=== PATIENT | female | born 1930 | race Caucasian/White ===

== ENCOUNTER 2016-08-16 03:27 | Inpatient (IN) ==
[2016-08-16] MEDS ORDERED: ONDANSETRON 4 MG/2 ML VIAL ONE ×2 (03:53→04:48)
[2016-08-16] MEDS ORDERED: MORPHINE 2 MG/1 ML SYRINGE IV STA (04:07)
[2016-08-16] MEDS ORDERED: SODIUM CHLORIDE 0.9% 1,000 ML IV STA (04:07)
[2016-08-16] MEDS ORDERED: ENOXAPARIN 100 MG/ML SYRINGE SUBCUT STA (04:07)
[2016-08-16] MEDS ORDERED: NITROGLYCERIN 2% OINT 1 INCH/GM PACK TOP STA (04:07)
[2016-08-16] MEDS ORDERED: ONDANSETRON 4 MG/2 ML VIAL IV STA ×2 (04:07→04:48)
[2016-08-16] MEDS ORDERED: ASPIRIN 325 MG TABLET PO STA (04:07)
[2016-08-16 04:19] LABS: Basophils % 0.3 % (0.0-0.8); Hematocrit 46.6 VOL% (35.7-47.0); Hemoglobin 14.8 GM/DL (12.0-16.0); Immature Granulocytes % 0.4 %; Immature Granulocytes Absolute 0.03 #; Lymphocytes # 0.7 10*3/uL (1.4-4.0); Lymphocytes % 9.2 % (21.3-54.2); Mean Corpuscular HGB Conc 31.8 GM/DL (32-36); Mean Corpuscular Hemoglobin 29 PG (27-34); Mean Platelet Volume 10.8 FL (9.6-12.0); Monocytes # 0.2 10*3/uL (0.11-0.8); Monocytes % 3.1 % (1.7-12.7); Neutrophils # 6.4 10*3/uL (1.4-7.4); Platelet Count 181 T/CUMM (130-400); Red Blood Count 5.18 MC/CUMM (3.8-5.5); White Blood Count 7.4 T/CUMM (4-12)
--- NOTE | 2016-08-16 04:21 | Emergency Department Note ---
Bharath Ott Mantricia, am scribing for, and in the presence of, Reginald Bernal MD 04:17. Gabe Ott Robert M, MD, personally performed the services described in this documentation, ascribed by Thor Sinha in my presence, and it is both accurate and complete 421 . Arrival - Arrival ED Nursing Triage Note: pt states chest pain started last night and has gotten worse and now feels sob and has had n/v/d. Mode of Arrival: Ambulatory Limitations: No Limitations Source: Patient - History of Present Illness Onset (ago): hour(s) Consistency: constant Severity: mild Severity scale (1-10): 3 Quality: dull Date of Last Menstrual Period: pm <Reginald Bernal - Last Filed: 08/16/16 04:21> <Ronen Layton - Last Filed: 08/16/16 06:42> - Arrival Chief Complaint: Chest Pain Stated Complaint: chest pain ,vomiting ,sob Time Seen by Provider: 08/16/16 04:06 - History of Present Illness HPI Narrative: Pt is an 85 y/o female arriving to ED with c/o chest pain that onset around 1800 yesterday evening. She states the pain started last night and has increased since her arrival at ED. Pt describes the pain as a dull pain that is accompanied with nausea and SOB. She states that the SOB worsens when walking and is relieved while sitting. Pt has a PMHx of DM and heart problems, that had ceased until now, but denies [place] or stents. She also denies smoking or drinking ETOH anymore. Pt's PCP is Dr. Coleman. (Thor Sinha) Pt is an 85 y/o female arriving to ED with c/o chest pain that onset around 1800 yesterday evening. She states the pain started last night and has increased since her arrival at ED. Pt describes the pain as a dull pain that is accompanied with nausea and SOB. She states that the SOB worsens when walking and is relieved while sitting. Pt has a PMHx of DM and heart problems, that had ceased until now, but denies [place] or stents. She also denies smoking or drinking ETOH anymore. Pt's PCP is Dr. Coleman. (Reginald Bernal) Review of System - Review of System 12 point system: reviewed and no additional remarkable complaints except as stated - Review of System Constitutional: Absent: chills, diaphoresis, fever Eyes: Absent: discharge, pain, redness Head/Ears/Nose/Throat: Absent: earache, epistaxis Respiratory: Absent: cough, respiratory distress, wheezing Cardiovascular: Present: chest pain, dyspnea on exertion. Absent: palpitations , orthopnea Gastrointestinal: Present: nausea. Absent: abdominal pain, vomiting, diarrhea Genitourinary female: Absent: abnormal menses, dysuria Musculoskeletal: Absent: arm pain, back pain, leg pain, neck pain Skin: Absent: rash, lesions Neurological: Absent: headache, weakness Psychiatric: Absent: anxiety, depression <Reginald Bernal - Last Filed: 08/16/16 04:21> Medical,Surgical,& Family Hx - Medical History Cardio: History of: Hypertension Endocrine: History of: Dyslipidemia, Thyroid Disorder - Surgical History Abdominal Surgeries: Surgical HX of: Cholecystectomy Reproductive Surgeries: Surgical HX of;: Hysterectomy - Social History Smoking Status: Never smoker Frequency of Alcohol Use: None Type of Drug Use: None <Reginald Bernal - Last Filed: 08/16/16 04:21> Exam - General General appearance: alert, in no apparent distress - Head Head exam: Present: atraumatic, normocephalic, normal inspection - Eye Eye exam: Present: normal appearance, PERRL, EOMI - ENT ENT exam: Present: normal exam, normal oropharynx, mucous membranes moist, TM's normal bilaterally, normal external ear exam - Neck Neck exam: Present: normal inspection, full ROM, trachea midline. Absent: tenderness - Chest Chest inspection: Present: normal inspection, symmetric chest wall rise. Absent : tenderness - Respiratory Respiratory exam: Present: normal lung sounds bilaterally - Cardiovascular Cardiovascular exam: Present: regular rate, normal rhythm, normal heart sounds - Abdominal Exam Abdominal exam: Present: soft, normal bowel sounds. Absent: distention, tenderness, guarding, rebound - Extremities Exam Extremities exam: Present: normal inspection, full ROM, normal capillary refill. Absent: tenderness, pedal edema - Back Exam Back exam: Present: normal inspection, full ROM. Absent: tenderness - Neurological Exam Neurological exam: Present: alert, oriented X3, CN II-XII intact, reflexes normal - Psychiatric Psychiatric exam: Present: normal affect, normal mood - Skin Skin exam: Present: warm, dry, intact, normal color <Reginald Bernal - Last Filed: 08/16/16 04:21> Vital Signs: Vital Signs Temperature 97.1 F L 08/16/16 04:05 Pulse Rate 82 08/16/16 04:05 Respiratory Rate 20 08/16/16 04:05 Blood Pressure 164/99 08/16/16 04:05 O2 Sat by Pulse Oximetry 95 08/16/16 04:04 Course <Reginald Bernal - Last Filed: 08/16/16 04:21> - Consultations Time: 06:42 <Ronen Layton - Last Filed: 08/16/16 06:42> Course Narrative: Care assumed from Dr. Bernal at 6 AM (Ronen Layton) - Consultations Consultation #1: Discussed with hospitalist. Patient will be admitted to their service. (Ronen Layton) Results <Reginald Bernal - Last Filed: 08/16/16 04:21> - Labs CBC & BMP: 08/16/16 04:06 08/16/16 04:06 Lab Results: I have reviewed the patients labs - EKG EKG results: interpreted by ERMD - Diagnostic Findings Procedure: Chest x-ray: image reviewed by me (Mild cardiomegaly, no infiltrates , no pleural effusions.) <Ronen Layton - Last Filed: 08/16/16 06:42> - Labs Labs: Laboratory Tests 08/16/16 04:06 Troponin I < 0.015 (Ronen Layton) - Impressions EKG: Sinus rhythm with sinus arrhythmia, rate 75, left bundle branch block, no further interpretation possible. (Ronen Layton) Disposition <Reginald Bernal - Last Filed: 08/16/16 04:21> Case discussed with: patient Time of Disposition: 06:40 <Ronen Layton - Last Filed: 08/16/16 06:42> Clinical Impression: Chest pain, Essential hypertension, Dyslipidemia Disposition: Still a Patient Condition: Stable
[2016-08-16 04:33] LABS: INR 1.1; PT Patient Result 11.2 SECS
[2016-08-16] MEDS ORDERED: ENOXAPARIN 100 MG/ML SYRINGE SUBCUT ONE (04:35)
[2016-08-16] MEDS ORDERED: NITROGLYCERIN 2% OINT 1 INCH/GM PACK TOP ONE (04:35)
--- NOTE | 2016-08-16 04:35 | EKG Report ---
Stationary ECG Study [facility] ER Test Date: 08/16/2016 3:43:11 AM Pat Name: VICKI CHAND Department: Room: Gender: F Bobbin Presser: Ana Maria : 1930 Requested by: Reginald Bernal Order Number: [id number] Sofia MD: LINDA SANTIAGO Intervals [place] Rate: 75 P: 76 AL: 156 QRS: 53 QRSD: 134 T: 269 QT: 391 QTc: 419 Interpretive Statements SINUS RHYTHM WITH MARKED SINUS ARRHYTHMIA LEFT BUNDLE BRANCH BLOCK Electronically Signed On 08-17-16 17:56:19 CDT by LINDA SANTIAGO [email or web address]
[2016-08-16] MEDS ORDERED: ASPIRIN 325 MG TABLET ONE (04:36)
[2016-08-16] MEDS ORDERED: MORPHINE 2 MG/1 ML SYRINGE ONE (04:36)
[2016-08-16 04:47] LABS: Albumin 4.3 G/DL (3.4-5.0); Bilirubin,Total 1.4 MG/DL (0.2-1.0); Calcium 9.6 MG/DL (8.5-10.1); Magnesium 2.5 MG/DL (1.8-2.4); Osmolality,Calculated 279.8 MOS/KG (273-304); Potassium 4.5 MMOL/L (3.5-5.1); Total Protein 7.6 G/DL (6.4-8.3); Troponin I Only < 0.015 NG/ML (0.00-0.045)
--- NOTE | 2016-08-16 07:36 | Ultrasound Report ---
Right upper quadrant ultrasound. Indication: Biliary colic. Right upper quadrant pain, chest pain, and vomiting. No prior studies. The liver is normal in size with a length of 14 cm. The parenchymal echogenicity is normal. Within the left lobe, there is a 2.7 x 3.8 cm cyst. There is no intrahepatic biliary ductal dilatation. The common duct measures 4.8 mm. The gallbladder has been removed. Portions of the pancreas aren't secured by bowel gas. Visualized portions appear normal. The right kidney is low normal in size with mild cortical thinning. No hydronephrosis. Subcentimeter cyst in the peripelvic region. Arterial flow is documented. Impression: 1. Status post cholecystectomy. 2. No biliary ductal dilatation. 3. Cyst in the left lobe of the liver. 4. Small right renal cyst. PROCEDURE INTERPRETED AT [facility] DEPARTMENT OF RADIOLOGY Final Report Signed by: Dr. Esthela Hensley
--- NOTE | 2016-08-16 07:50 | Hospitalist History & Physical ---
Assessment and Plan (1) Chest pain Status: Acute Assessment and plan: We will order full cardiac work-up. Will obtain serial cardiac enzymes; will consult cardiology if positive. Current Visit: Yes Qualifiers: Chest pain type: unspecified Qualified Code(s): R07.9 - Chest pain, unspecified (2) Dyslipidemia Status: Acute Assessment and plan: Will obtain lipid panel; resume home medications; adjust accordingly. Current Visit: Yes (3) Essential hypertension Status: Acute Assessment and plan: Will monitor and manage during the clinical encounter. Current Visit: Yes (4) Diabetes mellitus Status: Acute Assessment and plan: Will obtain HGA1C; consult hospice educator; and start accuchecks ACHS. Current Visit: Yes History of Present Illness Chief complaint: chest pain/nausea and vomiting History of present illness: This is a very pleasant 85 year old female that presented to the ED at [facility] this morning with a chief complaint of chest pain with nausea and vomiting. The patient has a past medical history significant for hypertension, diabetes mellitus, dyslipidemia, and hypothyroidism. She reports a surgical history of cholecystectomy, and hysterectomy. She reported the onset of symptoms on yesterday around 6PM. She describes the pain as dull in quality that intensified as time progressed. In addition, she reports shortness of breath upon minimal exertion that is relieved with rest. The patient denies any past medical history of myocardial infarction or any type of cardiac interventions in the past. The patient reports Dr. Coleman as her PCP. At the time of arrival, nausea and vomiting continued. Labs were obtained; which were essentially unremarkable. Cardiac enzymes were noted at <0.015 and BNP at 118. Electrocardiogram was obtained which showed sinus arrhythmia with left bundle branch block. Chest radiograph was obtained which revealed mild cardiomegaly, no infiltrates, no pleural effusions. Abdominal ultrasound was ordered which revealed cyst to the left lobe of the liver, small right renal cyst, and no biliary duct dilation. After brief discussion with both Dr. Layton and Dr. Davalos the patient will be admitted to the hospitalist service for continuation of care. The patient has several known cardiac risk-factors. We will admit and perform cardiac work-up; if cardiac enzymes are positive, we will consult cardiology to assist. Allergies Allergy/AdvReac Type Severity Reaction Status Date / Time Penicillins Allergy RASH Verified 08/16/16 07:04 Medical,Surgical,& Family Hx - Medical History Cardio: History of: Hypertension Endocrine: History of: Dyslipidemia, Thyroid Disorder - Surgical History Abdominal Surgeries: Surgical HX of: Cholecystectomy Reproductive Surgeries: Surgical HX of;: Hysterectomy - Social History Smoking Status: Never smoker Frequency of Alcohol Use: None Type of Drug Use: None 12 point system: reviewed and no additional remarkable complaints except as stated Exam - Constitutional Vitals: Period Temp Pulse Resp BP Sys/Parekh Pulse Ox Last 24 Hr 97.1 F-97.1 F 78-82 15-20 164-180/99-107 95-96 General appearance: normal weight, mild distress - Head Head exam: Present: normal inspection, normocephalic, atraumatic - Eye Eye exam: Present: EOMI. Absent: conjunctival injection, nystagmus Pupils: Present: SALLY, normal accommodation - ENT ENT exam: Present: normal exam, normal external ear exam, normal oropharynx - Neck Neck exam: Absent: lymphadenopathy, meningismus, tenderness, thyromegaly - Cardiovascular Cardiovascular exam: Present: regular rate and rhythm. Absent: carotid bruit, diastolic murmur, gallop, JVD, rubs, systolic murmur - GI/Abdominal GI/Abdominal exam: Present: normal bowel sounds, tenderness - Extremities Exam Extremities exam: Present: normal inspection, normal capillary refill, full ROM. Absent: edema - Back Exam Back exam: Present: normal inspection - Neurological Exam Neurological exam: Present: alert, oriented X3, CN II-XII intact - Psychiatric Psychiatric exam: Present: normal affect, normal mood - Skin Skin exam: Present: normal color, warm, dry Results - Labs CBC & BMP: 08/16/16 04:06 08/16/16 04:06 Lab Results: I have reviewed the past 24 hour labs
--- NOTE | 2016-08-16 07:51 | XRay Report ---
Portable chest. Indication: Chest pain. The heart is enlarged. There is a calcified granuloma at the right upper lobe. The pulmonary vasculature is prominent, worse on the left. The interstitial lung markings are prominent. No pneumothorax. No pleural effusion. Impression: Cardiomegaly, and venous congestion worse on the right, interstitial edema. Congestive heart failure suggested. PROCEDURE INTERPRETED AT [facility] DEPARTMENT OF RADIOLOGY Final Report Signed by: Dr. Esthela Hensley
[2016-08-16 08:23] LABS: Risk Ratio 2.57
[2016-08-16] MEDS ORDERED: PROMETHAZINE 25 MG/1 ML VIAL ONE (08:40)
[2016-08-16] MEDS ORDERED: PROMETHAZINE 25 MG/1 ML VIAL IM STA (08:53)
[2016-08-16] MEDS ORDERED: ONDANSETRON 4 MG/2 ML VIAL IV PRN (09:23)
[2016-08-16] MEDS ORDERED: SODIUM CHLORIDE 0.9% 1,000 ML IV SCH (09:23)
[2016-08-16] MEDS ORDERED: MORPHINE 2 MG/1 ML SYRINGE IV PRN (09:23)
[2016-08-16] MEDS ORDERED: ZALEPLON 5 MG CAPSULE PO PRN (09:23)
[2016-08-16] MEDS: ENOXAPARIN 40 MG/0.4 ML SYRINGE SUBCUT SCH (09:57)
[2016-08-16] MEDS: PANTOPRAZOLE 40 MG TABLET PO SCH (09:57)
[2016-08-16] MEDS ORDERED: hydrALAZINE 20 MG/1 ML VIAL IV PRN (11:02)
--- NOTE | 2016-08-16 11:12 | Cardiology Consult Note ---
Assessment and Plan - Time spent with patient Time spent with patient: Greater than 30 minutes (Examination, documentation chart reviewed and orders) (1) Blood pressure elevated without history of HTN Status: Acute Current Visit: Yes (2) Left bundle branch block Status: Chronic Current Visit: Yes (3) Nausea vomiting and diarrhea Status: Acute Current Visit: Yes (4) Abdominal pain Status: Acute Current Visit: Yes Qualifiers: Abdominal location: generalized Qualified Code(s): R10.84 - Generalized abdominal pain (5) Renal insufficiency Status: Acute Assessment and plan: Duration is unknown Current Visit: Yes (6) Chest pain Status: Acute Current Visit: Yes Qualifiers: Chest pain type: unspecified Qualified Code(s): R07.9 - Chest pain, unspecified (7) Diabetes mellitus Status: Acute Assessment and plan: The patient will ultimately need to be on low-dose statin and CHAPARRO inhibitor as well as aspirin daily. Current Visit: Yes Qualifiers: Diabetes mellitus type: type 2 History of Present Illness - Data of Consult Patient: known to practice within the last 3 years Consult date: 08/16/16 Requesting Physician: Neel Davalos Primary care physician: Bharath Coleman - Consult Narrative Reason for consult: Chest pain History of present illness: Ms. Cristina is a 85 year old female patient of Dr. Bharath Coleman and Dr. All Galvan who has a history of evaluation for coronary ischemia 1 year ago she had a nuclear stress test performed by Dr. Galvan. The patient has a chronic left bundle branch block. She came to the emergency room after a day enjoying samples while shopping exams with nausea vomiting diarrhea and chest/abdominal pain. Her EKG showed a chronic left bundle branch block without change she also had an initial troponin that was immeasurably low. Her blood pressure was markedly elevated and she does not have a history of hypertension. She has had a cholecystectomy in the past. She had evaluation and admitted to the hospitalist service. She has an abdominal ultrasound is largely unremarkable. She states that she has been passing excessive amounts of gas anytime that she started to throw up she has pain in the left side of her chest. She cannot quantitate but it is "bad." She has not had any chest pain with exertion. Her mother at 107 father also an early age both from "vascular" problems. We been asked to evaluate for chest pain. Patient is currently chest pain- free. She does complain of right lower quadrant and left mid abdominal pain. She has normal active bowel sounds but does have some discomfort whenever the bed is bumped has voluntary guarding of her abdomen. When she is distracted she will allow pretty decent palpation. The symptoms of this patient's chest pain sound likely related to her abdominal process. Her EKG is unchanged from previously she had a low risk nuclear stress test 1 year ago. Although she has long-standing diabetes her lipids are good on low-dose pravastatin. Also recommend continuation of aspirin a day and I would decrease to 81 mg daily. I do not think at this time this acute event is cardiac or ischemic in nature. I have ordered a repeat troponin from the one drawn in the ED. If this becomes elevated will reevaluate however at this time it appears that this is a GI process particularly given her nausea vomiting and diarrhea. Her abdomen is tender but her white count is normal. I cannot clearly elicit peritonitis. CC: Neel Davalos MD - Home Medications and Allergies Home Medications: Home Medications Medication Instructions Recorded Confirmed Type Aspirin Tab 325 mg PO DAILY 08/16/16 08/16/16 History Atenolol [Atenolol] 25 mg PO DAILY 08/16/16 08/16/16 History Furosemide [Furosemide] 20 mg PO QOTHER DAY 08/16/16 08/16/16 History Levothyroxine Sodium 50 mcg PO DAILY@0700 08/16/16 08/16/16 History Meclizine HCl 25 mg PO DAILY PRN 08/16/16 08/16/16 History Potassium Chloride [Klor-Con 8] 8 meq PO DAILY 08/16/16 08/16/16 History Pravastatin Sodium [Pravastatin 20 mg PO DAILY 08/16/16 08/16/16 History Sodium] Allergies/Adverse Reactions: Allergies Allergy/AdvReac Type Severity Reaction Status Date / Time Penicillins Allergy RASH Verified 08/16/16 07:04 - Constitutional Constitutional: Present: chills, fatigue, lethargy - Cardiovascular Cardiovascular: Present: chest pain at rest. Absent: chest pain with activity, dyspnea, dyspnea on exertion, edema, lightheadedness, orthopnea, palpitations - Respiratory Respiratory: Absent: dyspnea, dyspnea on exertion - Gastrointestinal Gastrointestinal: Present: abdominal pain, bloating, change in bowel habits, cramping, diarrhea, nausea, vomiting. Absent: heartburn, hematemesis, hematochezia, melena, odynophagia, jaundice - Genitourinary Genitourinary: Absent: abnormal vaginal bleeding, difficulty urinating, menorrhagia - Musculoskeletal Musculoskeletal: Absent: arthralgias, joint swelling - Neurological Neurological: Absent: abnormal gait - Psychiatric Psychiatric: Absent: anxiety, depression - Endocrine Endocrine: Present: cold intolerance. Absent: heat intolerance Medical,Surgical,& Family Hx - Medical History Cardio: History of: Hypertension Endocrine: History of: Dyslipidemia, Thyroid Disorder Gastrointestinal: History of: GI Problems (constipation) - Surgical History Abdominal Surgeries: Surgical HX of: Cholecystectomy Reproductive Surgeries: Surgical HX of;: Hysterectomy - Family History Family History: Reports;: Family Heart Disease, Family Hypertension - Social History Smoking Status: Never smoker Frequency of Alcohol Use: None Type of Drug Use: None Marital Status: Functional capacity: independent ambulation Physical Examination Vital Signs Temp Pulse Resp BP Pulse Ox 97.1 F L 82 16 164/99 96 08/16/16 03:30 08/16/16 03:30 08/16/16 03:30 08/16/16 03:30 08/16/16 03:30 General: Present: Appears Well HEENT: Present: Jaundice, Pallor Neck: Present: Supple Neck, Midline Trachea Cardiac: Present: Reg Rate and Rhythm, S1/S2, Other (Paradoxically split second heart sound consistent with history of left bundle branch block) Lungs: Present: Normal Exam, Other (She has prominent bowel sounds in her left chest) Neuro: Present: Cranial Nerve 2-12 Intact Abdomen: Present: Soft, Active Bowel Sounds, Tender. Absent: Hepatomegaly, Splenomegaly Skin: Present: Clear Extremities: Absent: Edema Result/EKG - Labs CBC & BMP: 08/16/16 04:06 08/16/16 04:06 - EKG EKG results: interpreted by me (Left bundle branch block, old normal sinus rhythm at 75 bpm)
[2016-08-16] MEDS ORDERED: MECLIZINE 25 MG TABLET PO PRN (11:26)
--- NOTE | 2016-08-16 12:27 | ECHO Report ---
Larissa Cristina Exam Date: 08/16/2016 11:33 Referring Physician: Technologist: Age: 85 Ht (in): Wt (lb): Gender: F Exam Location: [facility] Echo Indications: BP: / HR: Rhythm: Sinus Technical Quality: Good IMPRESSIONS Overall ejection fraction is 55-60%. There is no clear regional wall motion abnormality. Diastolic parameters appear to be most consistent with grade 1 diastolic dysfunction impaired relaxation. The left ventricular cavity size structure and function all appear to be normal. There is mild tricuspid regurgitation peak velocity 3.01 m/s corresponds a right ventricular systolic pressure of 36 mmHg plus the right atrial pressure. MEASUREMENTS (Male / Female) Normal Values 2D ECHO LV Diastolic Diameter PLAX 4.2 cm 4.2 - 5.9 / 3.9 - 5.3 cm LV Systolic Diameter PLAX 3.2 cm LV Fractional Shortening PLAX 25.1 % IVS Diastolic Thickness 0.7 cm 0.6 - 1.0 / 0.6 - 0.9 cm LVPW Diastolic Thickness 0.9 cm 0.6 - 1.0 / 0.6 - 0.9 cm RV Internal Dim ED PLAX 2.5 cm Aortic Root Diameter 3.3 cm LA Systolic Diameter LX 3.5 cm 3.0 - 4.0 / 2.7 - 3.8 cm DOPPLER TR Peak Velocity 312.0 cm/s TR Peak Gradient 38.9 mmHg FINDINGS Left Ventricle Overall ejection fraction is 55-60%. There is no clear regional wall motion abnormality. Diastolic parameters appear to be most consistent with grade 1 diastolic dysfunction impaired relaxation. The left ventricular cavity size structure and function all appear to be normal. Right Ventricle Right ventricle is normal Right Atrium Right atrium is normal Left Atrium Left atrium is normal Mitral Valve There is mild mitral annular calcification there is no mitral stenosis or regurgitation Aortic Valve Aortic valve is sclerotic and demonstrates excellent trileaflet excursion maximum velocity across the valve is 2.33 m/s there is no aortic insufficiency Tricuspid Valve There is mild tricuspid regurgitation peak velocity 3.01 m/s corresponds a right ventricular systolic pressure of 36 mmHg plus the right atrial pressure Pulmonic Valve Pulmonic valve is normal there is trace pulmonic insufficiency Pericardium There is no pericardial effusion Aorta Visualized portions thoracic aorta is normal Ariana Bennett (Electronically Signed) Final Date: 16 Aug 2016 12:27
[2016-08-16] MEDS ORDERED: SODIUM CHLORIDE 0.9% 500 ML IV ONE (23:00)
[2016-08-16] MEDS: SODIUM CHLORIDE 0.9% 1,000 ML IV SCH (23:18)
[2016-08-17 05:21] LABS: Basophils % 0.2 % (0.0-0.8); Hematocrit 39.5 VOL% (35.7-47.0); Immature Granulocytes % 3.6 %; Immature Granulocytes Absolute 0.81 #; Lymphocytes # 0.8 10*3/uL (1.4-4.0); Lymphocytes % 3.7 % (21.3-54.2); Mean Corpuscular HGB Conc 30.4 GM/DL (32-36); Mean Corpuscular Hemoglobin 29 PG (27-34); Mean Corpuscular Volume 93.8 FL (87-102); Monocytes # 1.9 10*3/uL (0.11-0.8); Monocytes % 8.4 % (1.7-12.7); Neutrophils % 84.1 % (38.7-73.9); Red Blood Count 4.21 MC/CUMM (3.8-5.5); Red Cell Distribution Width 14.6 % (9.3-17.3)
[2016-08-17 05:42] LABS: White Blood Count 22.6 T/CUMM (4-12)
[2016-08-17 05:43] LABS: Platelet Count 125 T/CUMM (130-400)
[2016-08-17 05:56] LABS: Band Neutrophils 5 % (0-10); Metamyelocytes 3 %; Total Cells Counted 100
[2016-08-17 05:57] LABS: Anisocytosis 2+; Lymphocytes 5 % (20-55); Macrocytosis 2+; Platelet Estimate Decreased; Segmented Neutrophils 78 % (50-85)
[2016-08-17 06:03] LABS: Albumin 2.7 G/DL (3.4-5.0); Bilirubin,Total 1.7 MG/DL (0.2-1.0); Calcium 7.8 MG/DL (8.5-10.1); Osmolality,Calculated 281.5 MOS/KG (273-304); Potassium 4.2 MMOL/L (3.5-5.1); Total Protein 5.2 G/DL (6.4-8.3); Troponin I Only 0.039 NG/ML (0.00-0.045)
[2016-08-17 06:06] LABS: Lactic Acid 2.5 MMOL/L (0.4-2.0)
[2016-08-17] MEDS: LEVOTHYROXINE 50 MCG TABLET PO SCH (06:08)
--- NOTE | 2016-08-17 07:46 | EKG Report ---
Stationary ECG Study [facility] Test Date: 08/17/2016 7:13:16 AM Pat Name: VICKI CHAND Department: Room: 268 Gender: F Fleet Manager: Isaac : 1930 Requested by: Neel Davalos Order Number: [id number] [place] MD: LINDA SANTIAGO Intervals [place] Rate: 89 P: 63 WI: 138 QRS: 116 QRSD: 121 T: -31 QT: 361 QTc: 408 Interpretive Statements SINUS RHYTHM LEFT BUNDLE BRANCH BLOCK Electronically Signed On 08-17-16 19:42:17 CDT by LINDA SANTIAGO [id number]
--- NOTE | 2016-08-17 10:04 | Cardiology Progress Note ---
I, Heydi Mcintyre, RN, am scribing for, and in the presence of, Ariana Bennett DO 10 :04. Assessment and Plan (1) Abdominal pain Status: Acute Assessment and plan: Clinically better with lab abnormalities as outlined above. This very well may have been a viral gastroenteritis. Concerning of the renal insufficiency. I discussed very briefly with Dr. Davalos nothing to add from a cardiovascular standpoint. We will sign off. Please call if needed Current Visit: Yes Qualifiers: Abdominal location: generalized Qualified Code(s): R10.84 - Generalized abdominal pain (2) Chest pain Status: Resolved Current Visit: Yes Qualifiers: Chest pain type: unspecified Qualified Code(s): R07.9 - Chest pain, unspecified (3) Diabetes mellitus Status: Chronic Current Visit: Yes Qualifiers: Diabetes mellitus type: type 2 (4) Nausea vomiting and diarrhea Status: Acute Current Visit: Yes (5) Renal insufficiency Status: Acute Current Visit: Yes (6) Left bundle branch block Status: Chronic Current Visit: Yes Cardiology - PN: Subj Interval history: Coach Tour Driver: Dr. Galvan Primary physician: Dr. Coleman Ms. Cristina is seen resting in bed no acute distress. She denies any further chest pain or abdominal pain. Currently she denies any nausea. Oxygen is in use via nasal cannula, she reports her breathing is okay. Echo done yesterday showed ejection fraction of 55-60%, grade 1 diastolic dysfunction, and mild tricuspid regurgitation. She was given some fluid during the night for low blood pressure, this morning is 80/41. The patient tells me her blood pressure usually runs low, but her daughter says it does not. Her platelet count is down to 125 this morning. Creatinine has risen from 1.3 yesterday to 2.9 today. Potassium magnesium are normal at 4.2 and 2.0. Troponin has been negative 3. BNP is elevated at 303. I saw and examined with Addie Miguelina. The patient's labs had significant changes overnight as mentioned above however she looks dramatically better. She had a normal bowel movement this morning she has had 2 voids of what is described as dark concentrated urine this morning. She states that she subjectively better and asking about when she will be discharged. Her creatinine is down to 2.9 white count 22,000 platelets of gone down 125,000. She is currently being hydrated. Exam (Progress Note) - Constitutional Vitals: Period Temp Pulse Resp BP Sys/Parekh Pulse Ox Last 24 Hr 98 F-100.1 F 69-93 18-22 72-144/41-67 90-95 General appearance: no acute distress, morbidly obese - Head Head exam: Absent: abrasion, hematoma - Eye Eye exam: Absent: periorbital swelling, laceration to eyelids - Neck Neck exam: Absent: tenderness - Respiratory Respiratory exam: Present: clear to auscultation bilaterally, other (Oxygen via nasal cannula). Absent: accessory muscle use, chest wall tenderness - Cardiovascular Cardiovascular exam: Present: regular rate and rhythm - GI/Abdominal GI/Abdominal exam: Present: normal bowel sounds, soft (Nontender). Absent: distended, tenderness - Extremities Exam Extremities exam: Absent: edema - Neurological Exam Neurological exam: Present: alert, oriented X3 - Psychiatric Psychiatric exam: Present: normal affect, normal mood - Skin Skin exam: Present: warm, dry Result/EKG - Labs CBC & BMP: 08/17/16 04:50 08/17/16 04:50 Lab Results: I have reviewed the past 24 hour labs Labs: Laboratory Results - last 24 hr 08/16/16 08/16/16 08/17/16 11:24 19:37 04:50 WBC 22.6 H D RBC 4.21 Hgb 12.0 D Hct 39.5 MCV 93.8 MCH 29 MCHC 30.4 L RDW 14.6 Plt Count 125 L D MPV 11.0 Neut % (Auto) 84.1 H Lymph % (Auto) 3.7 L Bertie % (Auto) 8.4 Eos % (Auto) 0.0 Baso % (Auto) 0.2 Neut # (Auto) 19.0 H Lymph # (Auto) 0.8 L Bertie # (Auto) 1.9 H Eos # (Auto) 0.0 Baso # (Auto) 0.0 Total Counted 100 Immature Gran % 3.6 Nucleated RBC % 0.0 Immature Gran # 0.81 Segmented Neutrophils 78 Band Neutrophils 5 Lymphocytes 5 L Monocytes 9 Metamyelocytes 3 Nucleated RBCs # 0.00 Platelet Estimate Decreased Anisocytosis 2+ Macrocytosis 2+ Sodium Potassium Chloride Carbon Dioxide Anion Gap BUN Creatinine GFR Calculation BUN/Creatinine Ratio Glucose POC Glucose 103 Calculated Osmolality Lactic Acid Calcium Magnesium Total Bilirubin AST ALT Alkaline Phosphatase Total Creatine Kinase Troponin I < 0.015 B-Natriuretic Peptide Total Protein Albumin Globulin Albumin/Globulin Ratio 08/17/16 08/17/16 04:50 04:50 WBC RBC Hgb Hct MCV MCH MCHC RDW Plt Count MPV Neut % (Auto) Lymph % (Auto) Bertie % (Auto) Eos % (Auto) Baso % (Auto) Neut # (Auto) Lymph # (Auto) Bertie # (Auto) Eos # (Auto) Baso # (Auto) Total Counted Immature Gran % Nucleated RBC % Immature Gran # Segmented Neutrophils Band Neutrophils Lymphocytes Monocytes Metamyelocytes Nucleated RBCs # Platelet Estimate Anisocytosis Macrocytosis Sodium 139 Potassium 4.2 Chloride 105 Carbon Dioxide 26 Anion Gap 12.2 BUN 28 H Creatinine 2.90 H GFR Calculation 17 BUN/Creatinine Ratio 9.00 Glucose 77 POC Glucose Calculated Osmolality 281.5 Lactic Acid 2.5 H Calcium 7.8 L Magnesium 2.0 Total Bilirubin 1.70 H AST 80 H ALT 60 H Alkaline Phosphatase 79 Total Creatine Kinase 304 H D Troponin I 0.039 B-Natriuretic Peptide 303 H Total Protein 5.2 L Albumin 2.7 L Globulin 2.5 Albumin/Globulin Ratio 1.0 L - EKG EKG results: interpreted by me EKG shows: sinus rhythm ISabrina Shea, DO, personally performed the services described in this documentation, ascribed by Heydi Mcintyre RN in my presence, and it is both accurate and complete .
[2016-08-17] MEDS: PRAVASTATIN 20 MG TABLET PO SCH (10:58)
[2016-08-17] MEDS: PANTOPRAZOLE 40 MG TABLET PO SCH (10:58)
[2016-08-17] MEDS: ENOXAPARIN 40 MG/0.4 ML SYRINGE SUBCUT SCH (10:59)
[2016-08-17] MEDS: SODIUM CHLORIDE 0.9% 1,000 ML IV SCH (11:34)
[2016-08-17] MEDS ORDERED: NIFEdipine 10 MG CAPSULE PO PRN (12:12)
--- NOTE | 2016-08-17 12:14 | Hospitalist Progress Note ---
Assessment and Plan (1) Abdominal pain Status: Acute Assessment and plan: The patient was initially admitted to the hospital with nausea vomiting and abdominal discomfort. These symptoms have improved over the last 24 hours with supportive care and are consistent with gastroenteritis. The patient had some low blood pressure during the episode of reduced oral intake and nausea vomiting and diarrhea. The patient's creatinine has now elevated consistent with acute kidney injury due to this hypotensive episode. We will recheck creatinine tomorrow and anticipate improvement and discharge. Current Visit: Yes Qualifiers: Abdominal location: generalized Qualified Code(s): R10.84 - Generalized abdominal pain (2) Essential hypertension Status: Acute Current Visit: Yes (3) Nausea vomiting and diarrhea Status: Acute Current Visit: Yes (4) Renal insufficiency Status: Acute Current Visit: Yes Hospitalist: Subjective Interval history: The patient is feeling better today. She does not have any nausea or vomiting. The patient does not have any abdominal pain. Exam - Constitutional Vitals: Period Temp Pulse Resp BP Sys/Parekh Pulse Ox Last 24 Hr 98.5 F-100.1 F 69-89 18-22 72-131/41-116 90-95 General appearance: no acute distress - Respiratory Respiratory exam: Present: clear to auscultation bilaterally - Cardiovascular Cardiovascular exam: Present: regular rate and rhythm - GI/Abdominal GI/Abdominal exam: Present: normal bowel sounds - Neurological Exam Neurological exam: Present: alert, oriented X3 Results - Labs CBC & BMP: 08/17/16 04:50 08/17/16 04:50 Lab Results: I have reviewed the past 24 hour labs
[2016-08-17] MEDS ORDERED: ENOXAPARIN 30 MG/0.3 ML SYRINGE SUBCUT SCH (12:30)
[2016-08-18] MEDS ORDERED: SODIUM CHLORIDE 0.9% 500 ML IV ONE ×2 (00:55→01:48)
[2016-08-18 04:21] LABS: Basophils % 0.3 % (0.0-0.8); Eosinophils # 0.2 10*3/uL (0.0-0.87); Eosinophils % 1.2 % (0.00-10.9); Hematocrit 35.1 VOL% (35.7-47.0); Hemoglobin 11.1 GM/DL (12.0-16.0); Immature Granulocytes % 8.4 %; Immature Granulocytes Absolute 1.28 #; Lymphocytes # 0.8 10*3/uL (1.4-4.0); Mean Corpuscular HGB Conc 31.6 GM/DL (32-36); Mean Corpuscular Hemoglobin 29 PG (27-34); Mean Corpuscular Volume 90.7 FL (87-102); Mean Platelet Volume 11.4 FL (9.6-12.0); Monocytes # 0.9 10*3/uL (0.11-0.8); Monocytes % 5.8 % (1.7-12.7); Neutrophils # 12.1 10*3/uL (1.4-7.4); Neutrophils % 79.3 % (38.7-73.9); Platelet Count 109 T/CUMM (130-400); Red Blood Count 3.87 MC/CUMM (3.8-5.5); Red Cell Distribution Width 14.6 % (9.3-17.3); White Blood Count 15.3 T/CUMM (4-12)
[2016-08-18 04:55] LABS: Calcium 7.9 MG/DL (8.5-10.1); Magnesium 2.1 MG/DL (1.8-2.4); Osmolality,Calculated 280.8 MOS/KG (273-304); Potassium 4.2 MMOL/L (3.5-5.1)
[2016-08-18 05:32] LABS: Band Neutrophils 6 % (0-10); Burr Cells Slight; Hypochromasia 1+; Lymphocytes 5 % (20-55); Ovalocytes Slight; Platelet Estimate Decreased; Segmented Neutrophils 87 % (50-85); Total Cells Counted 100
[2016-08-18 05:33] LABS: Macrocytosis Slight
[2016-08-18] MEDS: LEVOTHYROXINE 50 MCG TABLET PO SCH (07:11)
[2016-08-18] MEDS: PRAVASTATIN 20 MG TABLET PO SCH (09:47)
[2016-08-18] MEDS: PANTOPRAZOLE 40 MG TABLET PO SCH (09:47)
[2016-08-18] MEDS: ENOXAPARIN 30 MG/0.3 ML SYRINGE SUBCUT SCH (09:49)
[2016-08-18] MEDS ORDERED: TUBERCULIN SKIN TEST 0.1 ML SYRINGE INTRADERM ONE (13:00)
--- NOTE | 2016-08-18 13:19 | Hospitalist Progress Note ---
Assessment and Plan (1) Abdominal pain Status: Acute Assessment and plan: The patient was initially admitted to the hospital with nausea vomiting and abdominal discomfort. These symptoms have improved over the first 24 hours with supportive care and are consistent with gastroenteritis. The patient had some low blood pressure during the episode of reduced oral intake and nausea vomiting and diarrhea. The patient's creatinine has now elevated consistent with acute kidney injury due to this hypotensive episode. We will recheck creatinine tomorrow and anticipate improvement and discharge to swing bed when is arranged. In the meantime we will obtain physical and occupational therapy evaluations and get TB skin test. Current Visit: Yes Qualifiers: Abdominal location: generalized Qualified Code(s): R10.84 - Generalized abdominal pain (2) Essential hypertension Status: Acute Current Visit: Yes (3) Nausea vomiting and diarrhea Status: Acute Current Visit: Yes (4) Renal insufficiency Status: Acute Current Visit: Yes Hospitalist: Subjective Interval history: The patient is resting quietly in bed today. I coordinated care with the nurse and the patient's family concerning her medical issues and disposition. They would like her to be independent prior to discharge home. We discussed the patient's debility and need for further strengthening prior to independence. Perhaps swing bed will be appropriate for her. Exam - Constitutional Vitals: Period Temp Pulse Resp BP Sys/Parekh Pulse Ox Last 24 Hr 97.5 F-100.5 F 75-90 16-20 60-109/27-51 92-95 General appearance: no acute distress - Respiratory Respiratory exam: Present: clear to auscultation bilaterally - Cardiovascular Cardiovascular exam: Present: regular rate and rhythm - GI/Abdominal GI/Abdominal exam: Present: normal bowel sounds Results - Labs CBC & BMP: 08/18/16 03:33 08/18/16 03:33 Lab Results: I have reviewed the past 24 hour labs
[2016-08-19 04:27] LABS: Basophils % 0.3 % (0.0-0.8); Eosinophils # 0.2 10*3/uL (0.0-0.87); Eosinophils % 1.8 % (0.00-10.9); Hematocrit 34.8 VOL% (35.7-47.0); Hemoglobin 11.2 GM/DL (12.0-16.0); Immature Granulocytes % 0.5 %; Immature Granulocytes Absolute 0.06 #; Lymphocytes # 0.7 10*3/uL (1.4-4.0); Mean Corpuscular HGB Conc 32.2 GM/DL (32-36); Mean Corpuscular Hemoglobin 29 PG (27-34); Mean Corpuscular Volume 89.7 FL (87-102); Mean Platelet Volume 11.7 FL (9.6-12.0); Monocytes # 0.9 10*3/uL (0.11-0.8); Monocytes % 7.2 % (1.7-12.7); Neutrophils % 84.2 % (38.7-73.9); Platelet Count 106 T/CUMM (130-400); Red Blood Count 3.88 MC/CUMM (3.8-5.5); Red Cell Distribution Width 14.6 % (9.3-17.3); White Blood Count 11.9 T/CUMM (4-12)
[2016-08-19 04:42] LABS: Calcium 7.8 MG/DL (8.5-10.1); Osmolality,Calculated 283.5 MOS/KG (273-304)
[2016-08-19] MEDS: LEVOTHYROXINE 50 MCG TABLET PO SCH (06:55)
[2016-08-19] MEDS: PANTOPRAZOLE 40 MG TABLET PO SCH (09:33)
[2016-08-19] MEDS: PRAVASTATIN 20 MG TABLET PO SCH (09:33)
[2016-08-19] MEDS: ENOXAPARIN 30 MG/0.3 ML SYRINGE SUBCUT SCH (09:35)
--- NOTE | 2016-08-19 10:30 | Hospitalist Progress Note ---
Assessment and Plan (1) Abdominal pain Status: Acute Assessment and plan: The patient was initially admitted to the hospital with nausea vomiting and abdominal discomfort. These symptoms have resolved over the last couple of days with supportive care and are consistent with gastroenteritis. The patient had some low blood pressure during the episode of reduced oral intake and nausea vomiting and diarrhea. The patient's creatinine has now elevated consistent with acute kidney injury due to this hypotensive episode. We will recheck creatinine tomorrow and anticipate improvement and discharge to swing bed when is arranged. In the meantime we will obtain physical and occupational therapy evaluations and get TB skin test. Current Visit: Yes Qualifiers: Abdominal location: generalized Qualified Code(s): R10.84 - Generalized abdominal pain (2) Essential hypertension Status: Acute Current Visit: Yes (3) Nausea vomiting and diarrhea Status: Acute Current Visit: Yes (4) Renal insufficiency Status: Acute Current Visit: Yes Hospitalist: Subjective Interval history: The patient is up to chair today mental status is bright. The patient is able to ambulate using a walker although she is quite weak. The patient was directing the staff on how to adjust her bedside commode. Exam - Constitutional Vitals: Period Temp Pulse Resp BP Sys/Parekh Pulse Ox Last 24 Hr 96.9 F-99.5 F 76-90 16-93 80-119/38-51 92-98 Exam: Constitutional System: No distress. No tremulousness. Head: Normocephalic, atraumatic. Ears, Nose and Throat System: No evidence of Otitis or Mastoiditis. No epistaxis or discharge Eyes System: Pupils equal, round, and reactive. Extraocular muscles intact. Neck: Supple, without adenopathy, No jugular venous distention. No thyromegaly , neck mass, or prior surgery apparent. Respiratory System: Chest clear to auscultation. Cardiovascular System: Heart with regular rate and rhythm. No murmur. GI System: Abdomen soft, nontender. Normo active bowel sounds present. Musculoskeletal System: limbs with no pedal edema. Full distal pulses. Neurological System: No discernable sensory deficit. No aphasia Psychiatric System: Conversation is rational Results - Labs CBC & BMP: 08/19/16 03:40 08/19/16 03:40 Lab Results: I have reviewed the past 24 hour labs
[2016-08-20 05:23] LABS: Basophils % 0.3 % (0.0-0.8); Eosinophils # 0.4 10*3/uL (0.0-0.87); Eosinophils % 3.7 % (0.00-10.9); Hematocrit 33.9 VOL% (35.7-47.0); Hemoglobin 10.9 GM/DL (12.0-16.0); Immature Granulocytes % 0.7 %; Immature Granulocytes Absolute 0.07 #; Lymphocytes # 0.8 10*3/uL (1.4-4.0); Lymphocytes % 8.4 % (21.3-54.2); Mean Corpuscular HGB Conc 32.2 GM/DL (32-36); Mean Corpuscular Hemoglobin 29 PG (27-34); Mean Corpuscular Volume 88.7 FL (87-102); Mean Platelet Volume 11.6 FL (9.6-12.0); Monocytes # 1.2 10*3/uL (0.11-0.8); Monocytes % 12.4 % (1.7-12.7); Neutrophils # 7.1 10*3/uL (1.4-7.4); Neutrophils % 74.5 % (38.7-73.9); Platelet Count 107 T/CUMM (130-400); Red Blood Count 3.82 MC/CUMM (3.8-5.5); Red Cell Distribution Width 14.6 % (9.3-17.3); White Blood Count 9.5 T/CUMM (4-12)
[2016-08-20 05:54] LABS: Calcium 7.9 MG/DL (8.5-10.1); Magnesium 2.1 MG/DL (1.8-2.4); Osmolality,Calculated 280.7 MOS/KG (273-304); Potassium 4.2 MMOL/L (3.5-5.1)
[2016-08-20] MEDS: LEVOTHYROXINE 50 MCG TABLET PO SCH (06:23)
[2016-08-20] MEDS: PANTOPRAZOLE 40 MG TABLET PO SCH (08:05)
[2016-08-20] MEDS: PRAVASTATIN 20 MG TABLET PO SCH (08:05)
[2016-08-20] MEDS: ENOXAPARIN 30 MG/0.3 ML SYRINGE SUBCUT SCH (08:05)
--- NOTE | 2016-08-20 12:14 | Hospitalist Progress Note ---
Assessment and Plan (1) Acute kidney injury (nontraumatic) Status: Acute Assessment and plan: Improving creatinine. Current Visit: Yes (2) Generalized weakness Status: Acute Assessment and plan: Improving with physical therapy. This is debility related to acute illness and hospitalization. Patient was previously living independent at home and plans to return to the home setting. Continue physical therapy. Await swing bed evaluation. Current Visit: Yes (3) Essential hypertension Status: Chronic Current Visit: Yes (4) Diabetes mellitus Status: Chronic Current Visit: Yes Qualifiers: Diabetes mellitus type: type 2 Hospitalist: Subjective Interval history: Patient seen and examined. No acute events overnight. Case discussed with nursing staff. Labs reviewed. Swing bed placement in progress. Patient continues to improve slowly. Creatinine is improving consistent with acute kidney injury. GI symptoms have resolved. Exam - Constitutional Vitals: Period Temp Pulse Resp BP Sys/Parekh Pulse Ox Last 24 Hr 98.1 F-99.4 F 71-82 16-21 91-124/45-65 91-97 Exam: Constitutional System: No distress. No tremulousness. Head: Normocephalic, atraumatic. Ears, Nose and Throat System: No pain or tenderness. No epistaxis or discharge Eyes System: Pupils equal, round, and reactive. Extraocular muscles intact. Neck: Supple, without adenopathy, No jugular venous distention. No thyromegaly, neck mass, or prior surgery apparent. Respiratory System: Chest clear to auscultation. Cardiovascular System: Heart with regular rate and rhythm. No murmur. GI System: Abdomen soft, nontender. Normo active bowel sounds present. Musculoskeletal System: limbs with minimal pedal edema. Full distal pulses. Neurological System: No discernable sensory deficit. No aphasia Psychiatric System: Conversation is rational Results - Labs CBC & BMP: 08/20/16 04:05 08/20/16 04:05 Lab Results: I have reviewed the past 24 hour labs
[2016-08-21] MEDS: LEVOTHYROXINE 50 MCG TABLET PO SCH (06:40)
[2016-08-21 07:46] VITALS: BP 135/60
[2016-08-21] MEDS: PANTOPRAZOLE 40 MG TABLET PO SCH (08:31)
[2016-08-21] MEDS: PRAVASTATIN 20 MG TABLET PO SCH (08:31)
[2016-08-21] MEDS: ENOXAPARIN 30 MG/0.3 ML SYRINGE SUBCUT SCH (08:32)
[2016-08-21] MEDS ORDERED: ASPIRIN 325 MG TABLET PO SCH (09:00)
[2016-08-21] MEDS ORDERED: ATENOLOL 25 MG TABLET PO SCH (09:00)
--- NOTE | 2016-08-21 10:22 | Discharge Summary ---
Hospital Course - Hospital Course Hospital Course: This is a very pleasant 85 year old female that presented to the ED at [facility] with a chief complaint of chest pain with nausea and vomiting. The patient has a past medical history significant for hypertension, diabetes mellitus, dyslipidemia, and hypothyroidism. She reports a surgical history of cholecystectomy, and hysterectomy. She reported the onset of symptoms on the day prior to admission. She describes the pain as dull in quality that intensified as time progressed. In addition, she reports shortness of breath upon minimal exertion that is relieved with rest. The patient denies any past medical history of myocardial infarction or any type of cardiac interventions in the past. The patient reports Dr. Coleman as her PCP. At the time of arrival, nausea and vomiting continued. Labs were obtained; which were essentially unremarkable. Cardiac enzymes were noted at <0.015 and BNP at 118. Electrocardiogram was obtained which showed sinus arrhythmia with left bundle branch block. Chest radiograph was obtained which revealed mild cardiomegaly, no infiltrates, no pleural effusions. Abdominal ultrasound was ordered which revealed cyst to the left lobe of the liver, small right renal cyst, and no biliary duct dilation. After brief discussion with both Dr. Layton and Dr. Davalos the patient was admitted to the hospitalist service for continuation of care. The patient has several known cardiac risk-factors. We will admit and perform cardiac work-up. Ms. Cristina did well during the course of the hospitalization. Her symptoms of nausea vomiting and diarrhea resolved and were presumably gastroenteritis related. During the course of her acute illness, the patient had hypotension which led to acute kidney injury in combination with her dehydration and prerenal azotemia. Her renal function has improved. During hospitalization, her Lasix was held due to acute kidney injury. He can be restarted tomorrow to avoid symptoms of congestive heart failure. She is being discharged to swing bed secondary to significant debility that has occurred during the course of this acute hospitalization. An echocardiogram was done during this hospitalization showing an ejection fraction of 55-60% with grade 1 diastolic dysfunction. - Time spent with patient Time with patient DS: Greater than 30 minutes (Total discharge time for this patient, including [id number] time, clinical documentation, medication reconciliation, and discharge planning was 36 minutes.) Diagnosis - Discharge Diagnosis (1) Acute kidney injury (nontraumatic) Status: Acute (2) Generalized weakness Status: Acute (3) Essential hypertension Status: Chronic (4) Diabetes mellitus Status: Chronic Discharge Plan - Discharge Data Disposition: Disch/Xfer-[facility]ps[facility]ort Term Hos Condition at Discharge: Stable Discharge Diet: advance to your usual diet Activity: resume usual activities as tolerated, as per physical therapy Hygiene: no restrictions Weight Bearing at Discharge: full weight bearing Contact your physician if you experience:: fever over 101 - Discharge Medications Continue Aspirin Tab 325 mg PO DAILY Pravastatin Sodium 20 mg PO DAILY Potassium Chloride [Klor-Con 8] 8 meq PO DAILY Meclizine HCl 25 mg PO DAILY PRN PRN Reason: Dizziness Levothyroxine Sodium 50 mcg PO DAILY@0700 Atenolol 25 mg PO DAILY Furosemide 20 mg PO QOTHER DAY - Follow Up or Referral Follow Up: Bharath Coleman MD [Primary Care Provider] - - Forms/Instructions Exam - Constitutional Vitals: Period Temp Pulse Resp BP Sys/Parekh Pulse Ox Last 24 Hr 97.4 F-100.7 F 71-89 16-20 111-135/44-62 93-98 DS: Provider Date of admission: 08/16/16 07:53 Primary care physician: Bharath Coleman MD Attending physician on admission: Neel Davalos MD Consults: 08/16/16 09:23 Consult to [facility], Educator [CONS] Routine Reason for Material Control Clerk: Re-education Consult to Physician [CONS] Routine Comment: chest pain Consulting Provider: Otilio Perez Person Notified: [email or web address] Date Notified: 08/16/16 Time Notified: 09:25 Consult Notification Comment: will pass message to nurse 08/18/16 12:05 Consult to Case Mgmt/Social Srvs [CONS] Routine Reason for Case Mgmt/Social Srvs: Swingbed/SNF/[facility] Rehab Consult to Occupational Therapy [CONS] Routine Reason for Occupational Therapy: Weakness Consult to Physical Therapy [CONS] Routine Reason for Physical Therapy: Weakness Discharging clinician: Helen Fitzpatrick MD Expected date of discharge: 08/21/16
== END 2016-08-21 13:34 | disposition swing bed (61) | DRG 392 ==
LOC: EDBD → N.ED 03:27 → SUATTDRO 07:53 → N.EDINP 07:53 → N.TELES 09:16
PROVIDERS: ADMIT Internal Medicine; ATTEND Family Medicine